=== PATIENT | female | born 1990 | race Caucasian/White ===

== ENCOUNTER → 2018-06-22 | Outpatient (CLI) | payer OTHER ==
[~2018-06-22] MED LIST: Bactrim 400-801 EACH PO; CLIN150 PO; HYDACE5 PO; Keflex500 MG PO; RXHYDACE PO
[2018-06-24 15:08] LABS: HPV 16 Negative (Negative); HPV 18 Negative (Negative); HPV OTHER HR TYPES Negative (Negative)
== END | disposition home or self-care (01) ==
LOC: LAB SHORT 16:00 → LAB 16:00 → LAB SHORT 06-23 12:23
PROVIDERS: Registered Nurse
DX: Z12.4 Encounter for screening for malignant neoplasm of cervix (principal)
CPT/HCPCS: 87624; 88142

== ENCOUNTER 2023-07-29 20:35 | Emergency (ER) | payer OTHER ==
[~2023-07-29] VITALS: Ht 167.6 cm; Wt 104.3 kg
[2023-07-29 23:16] VITALS: BP 139/77
[2023-07-30] MEDS ORDERED: Cyclobenzaprine5 MG (04:49)
[2023-07-30] MEDS ORDERED: ESCI10 (04:49)
== END 2023-07-29 23:19 | disposition home or self-care (01) ==
LOC: ER 20:35
DX: M79.662 Pain in left lower leg (principal); F17.210 Nicotine dependence, cigarettes, uncomplicated; Z88.2 Allergy status to sulfonamides; Z88.1 Allergy status to other antibiotic agents; W18.2XXA Fall in (into) shower or empty bathtub, initial encounter
CPT/HCPCS: 73590; 99283-25

== ENCOUNTER → 2023-10-08 | Outpatient (CLI) | payer OTHER ==
[~2023-10-08] MED LIST changes: +Cyclobenzaprine5 MG; +ESCI10
[2023-10-18 04:20] LABS: HPV GENOTYPE 16 BY PCR Negative; HPV GENOTYPE 18 BY PCR Negative; HPV SOURCE Cervical; HPV, OTHER HIGH RISK BY PCR Negative
== END ==
LOC: LAB SHORT 17:24 → LAB 17:24
PROVIDERS: Nurse Practitioner Family
DX: Z01.419 Encounter for gynecological examination (general) (routine) without abnormal findings (principal)
CPT/HCPCS: 87624; 88142